=== PATIENT | male | born 1980 | race Two or more races ===

== ENCOUNTER 2016-10-10 18:55 | Emergency (ER) | payer OTHER ==
--- NOTE | ~2016-10-10 | CT71 ---
[facility] A Service of [facility] RADIOLOGY TEXT RESULTS PATIENT: AMAUNEL RENTERIA LOCATION: [facility] : 78 UNIT #: [id number] AGE: [address]: Manuel Palacios MD SEX: M ORDER DR: [id number] [facility] [address] [place], [place] [address] [id number] E MR#: [id number] #: [id number] NAME: AMANUEL RENTERIA : 1980 SEX: M STUDY DATE/TIME: 10/10/2016 17:30 UNIT: [facility] ROOM: STUDY DESCRIPTION: CT Head Wo Contrast Attending Physician: Manuel Palacios M.D. Ordering Physician: Manuel Palacios M.D. Primary Care Physician: Alla Altman M.D. MEDICAL IMAGING REPORT This report is preliminary unless electronic signature is present EXAM CT head without contrast 10/10/2016 HISTORY Headache, hypertension this a.m. worse with movement head and back of neck pain. TECHNIQUE This CT exam was performed with one or more of the following radiation dose reduction techniques: automatic control, adjustment of mA and/or kV according to patient size, and iterative reconstruction. FINDINGS CT head performed skull base through vertex without intravenous contrast. No prior CTs of head for comparison. The brainstem is unremarkable. Cerebellum and cerebral hemispheres show normal overall motley matter - white matter differentiation. No hemorrhage or acute cortical ischemia. There are subcentimeter areas of nonspecific subcortical white matter hypodensity in the bilateral frontal lobes. Patient carries a history of hypertension and these may represent areas of chronic small vessel ischemic change on the basis of chronic hypertension. Other etiologies are not excluded. They are best further characterized by MRI if the patient is a candidate. I do not believe that they are acute in time course. The midline structures are nondisplaced and the basal ganglia are intact. The ventricles, cisterns and sulci are normal in size and contour. There is no intra or extraaxial mass effect or abnormal intracranial fluid collection. The cavernous carotid arteries show some scattered atherosclerotic arterial calcifications. The intraorbital soft tissues are unremarkable. The visualized paranasal sinuses and mastoid air cells show minimal mucosal thickening ethmoid and sphenoid sinuses. No indication of acute sinusitis. Configuration of the right medial orbital wall suggests old healed medial orbital wall fracture. No acute-appearing bony abnormality. [facility] A Service of [facility] RADIOLOGY TEXT RESULTS PATIENT: AMANUEL RENTERIA LOCATION: [facility] : 78 UNIT #: [id number] AGE: [address]: Manuel Palacios MD SEX: M ORDER DR: IMPRESSION 1. There is no clear indication of acute abnormality within the brain. In the bilateral frontal lobes there are subcentimeter areas of subcortical white matter hypodensity favored to be chronic in time course but indeterminate in appearance. Patient carries a history of hypertension and these could represent sequelae of chronic small vessel ischemia on the basis of hypertension. Other white matter processes are not excluded. This finding is best further characterized with MRI if the patient is a candidate. There is no evidence of acute cortical ischemia. No hemorrhage or intracranial mass effect. No abnormal fluid collection. 2. Cavernous carotid arterial calcifications. 3. Configuration of right medial orbital wall suggests old healed fracture. Correlate with history. Dictated by... Keo Welsh M.D. THIS IS AN ELECTRONICALLY VERIFIED REPORT Keo Welsh M.D. at 10/14/2016 7:36 AM KIMMY/emily TD: 10/10/2016 22:03 JOB #: [id number] MEDICAL IMAGING REPORT Page 1 of 1 COPY
[~2016-10-10 18:55] MED LIST: PROTONIX PO
== END 2016-10-10 20:40 | disposition home or self-care (01) ==
LOC: CED 18:55
DX: R51 Headache (principal); I10 Essential (primary) hypertension; F17.210 Nicotine dependence, cigarettes, uncomplicated; Z88.0 Allergy status to penicillin
CPT/HCPCS: 70450; 96372; 99284; J1885